=== PATIENT | female | born 1940 | race Caucasian/White ===

== ENCOUNTER 2025-04-16 10:15 | Inpatient (IN) | payer MEDICARE, BC ==
[2025-04-16] MEDS ORDERED: Ondansetron 4 MG/2 ML SDV IV PRN (10:58)
[2025-04-16] MEDS ORDERED: Ondansetron 4 MG Tab.DIS PO PRN (10:58)
[2025-04-16] MEDS ORDERED: Albuterol 0.083% 2.5 MG/3 ML Neb Soln NEB PRN (10:58)
[2025-04-16] MEDS ORDERED: Sodium Chloride 0.9% 10 ML Syringe FLUSH PRN ×2 (10:58)
[2025-04-17 07:39] LABS: PLATELET COUNT,PLT 422 10^3/uL (150-400); RED BLOOD CELL COUNT 3.84 x10^6/uL (4.00-5.50)
[2025-04-17 07:41] LABS: WHITE BLOOD CELL COUNT,WBC 23.6 10^3/uL (4.0-11.0)
[2025-04-17] MEDS: Lactobacillus Rhamnosus GG (Probiotic) Cap PO SCH (07:46)
[2025-04-17 07:58] LABS: ALANINE AMINOTRANSFERASE,ALT 222.0 U/L (12-78); ASPARTATE AMNIOTRANSFERASE,AST 56.0 U/L (15-37); BILIRUBIN TOTAL 0.4 mg/dL (0.0-1.0); BLOOD UREA NITROGEN,BUN 12.0 mg/dL (7-18); CARBON DIOXIDE,CO2 31.0 mmol/L (21-32); CHLORIDE,CL 96.0 mEq/L (98-106); CREATININE 0.7 mg/dL (0.6-1.0); EST CRCL DRUG DOSING (CG) 45.63 mL/min; GLUCOSE RANDOM 86.0 mg/dL (75-99); POTASSIUM,K 3.2 mEq/L (3.5-5.0); PROTEIN TOTAL,TP 6.5 g/dL (6.4-8.2); SODIUM,NA 134.0 mEq/L (136-145)
[2025-04-17 07:59] LABS: ESTIMATED GFR 84.0 mL/min (>=60)
[2025-04-17 08:06] LABS: EOSINOPHILS ABSOLUTE MAN 0.24 10^3/uL (0.00-0.45); EOSINOPHILS PERCENT MAN 1 % (0-5); LYMPHOCYTES ABSOLUTE MAN 6.84 10^3/uL (1.00-4.80); LYMPHOCYTES PERCENT MAN 29 % (21-55); MONOCYTES ABSOLUTE MAN 2.60 10^3/uL (0.00-0.80); MONOCYTES PERCENT MAN 11 % (2-12); NEUTROPHILS ABSOLUTE MAN 13.92 10^3/uL (1.80-7.00); SEG NEUTROPHILS PERCENT MAN 59 % (35-85)
[2025-04-17] MEDS: Potassium Chloride 20 MEQ Tab.ER PO ONE (08:40)
[2025-04-18 07:34] LABS: PLATELET COUNT,PLT 421 10^3/uL (150-400); RED BLOOD CELL COUNT 3.74 x10^6/uL (4.00-5.50)
[2025-04-18 07:50] LABS: WHITE BLOOD CELL COUNT,WBC 30.0 10^3/uL (4.0-11.0)
[2025-04-18 08:03] LABS: ALANINE AMINOTRANSFERASE,ALT 131.0 U/L (12-78); ASPARTATE AMNIOTRANSFERASE,AST 31.0 U/L (15-37); BILIRUBIN TOTAL 0.5 mg/dL (0.0-1.0); BLOOD UREA NITROGEN,BUN 13.0 mg/dL (7-18); CARBON DIOXIDE,CO2 29.0 mmol/L (21-32); CREATININE 0.7 mg/dL (0.6-1.0); EST CRCL DRUG DOSING (CG) 45.63 mL/min; GLUCOSE RANDOM 90.0 mg/dL (75-99); POTASSIUM,K 3.6 mEq/L (3.5-5.0); PROTEIN TOTAL,TP 6.1 g/dL (6.4-8.2)
[2025-04-18 08:20] LABS: CHLORIDE,CL 93.0 mEq/L (98-106); ESTIMATED GFR 84.0 mL/min (>=60); SODIUM,NA 130.0 mEq/L (136-145)
[2025-04-18 08:25] LABS: LYMPHOCYTES ABSOLUTE MAN 3.00 10^3/uL (1.00-4.80); LYMPHOCYTES PERCENT MAN 10 % (21-55); MONOCYTES ABSOLUTE MAN 1.20 10^3/uL (0.00-0.80); MONOCYTES PERCENT MAN 4 % (2-12); MYELOCYTE PERCENT MAN 21 %; NEUTROPHILS ABSOLUTE MAN 19.50 10^3/uL (1.80-7.00); SEG NEUTROPHILS PERCENT MAN 65 % (35-85)
[2025-04-19 07:26] LABS: ALANINE AMINOTRANSFERASE,ALT 88.0 U/L (12-78); ASPARTATE AMNIOTRANSFERASE,AST 18.0 U/L (15-37); BILIRUBIN TOTAL 0.4 mg/dL (0.0-1.0); BLOOD UREA NITROGEN,BUN 17.0 mg/dL (7-18); CARBON DIOXIDE,CO2 29.0 mmol/L (21-32); CHLORIDE,CL 96.0 mEq/L (98-106); CREATININE 0.8 mg/dL (0.6-1.0); EST CRCL DRUG DOSING (CG) 39.92 mL/min; GLUCOSE RANDOM 96.0 mg/dL (75-99); POTASSIUM,K 4.5 mEq/L (3.5-5.0); PROTEIN TOTAL,TP 6.1 g/dL (6.4-8.2); SODIUM,NA 132.0 mEq/L (136-145)
[2025-04-19 07:33] LABS: ESTIMATED GFR 72.0 mL/min (>=60)
[2025-04-19 07:48] LABS: BASOPHILS ABSOLUTE AUTO 0.01 10^3/uL (0.00-0.50); BASOPHILS PERCENT AUTO 0.0 % (0-1); EOSINOPHILS ABSOLUTE AUTO 0.32 10^3/uL (0.00-1.50); EOSINOPHILS PERCENT AUTO 1.1 % (0-6); IMMATURE GRAN ABSOLUTE AUTO 4.56 10^3/uL (0.00-0.49); IMMATURE GRAN PERCENT AUTO 16.4 % (0.0-4.9); LYMPHOCYTES ABSOLUTE AUTO 3.36 10^3/uL (0.60-5.00); LYMPHOCYTES PERCENT AUTO 12.1 % (24-44); MONOCYTES ABSOLUTE AUTO 1.53 10^3/uL (0.00-1.50); MONOCYTES PERCENT AUTO 5.5 % (0-10); NEUTROPHILS ABSOLUTE AUTO 18.05 x10^3/uL (1.80-8.00); NEUTROPHILS PERCENT AUTO 64.9 % (41-71); PLATELET COUNT,PLT 420 10^3/uL (150-400); RED BLOOD CELL COUNT 3.65 x10^6/uL (4.00-5.50)
[2025-04-19 07:50] LABS: WHITE BLOOD CELL COUNT,WBC 27.8 10^3/uL (4.0-11.0)
[2025-04-20 07:27] LABS: PLATELET COUNT,PLT 432 10^3/uL (150-400); RED BLOOD CELL COUNT 3.75 x10^6/uL (4.00-5.50)
[2025-04-20 07:44] LABS: ALANINE AMINOTRANSFERASE,ALT 76.0 U/L (12-78); ASPARTATE AMNIOTRANSFERASE,AST 25.0 U/L (15-37); BILIRUBIN TOTAL 0.4 mg/dL (0.0-1.0); BLOOD UREA NITROGEN,BUN 15.0 mg/dL (7-18); CARBON DIOXIDE,CO2 27.0 mmol/L (21-32); CHLORIDE,CL 95.0 mEq/L (98-106); CREATININE 0.7 mg/dL (0.6-1.0); EST CRCL DRUG DOSING (CG) 45.63 mL/min; GLUCOSE RANDOM 99.0 mg/dL (75-99); POTASSIUM,K 3.9 mEq/L (3.5-5.0); PROTEIN TOTAL,TP 6.4 g/dL (6.4-8.2); SODIUM,NA 130.0 mEq/L (136-145)
[2025-04-20 07:45] LABS: ESTIMATED GFR 84.0 mL/min (>=60)
[2025-04-20 07:46] LABS: WHITE BLOOD CELL COUNT,WBC 22.2 10^3/uL (4.0-11.0)
[2025-04-20 08:06] LABS: BAND PERCENT MAN 3 % (0-5); EOSINOPHILS ABSOLUTE MAN 0.67 10^3/uL (0.00-0.45); EOSINOPHILS PERCENT MAN 3 % (0-5); LYMPHOCYTES ABSOLUTE MAN 3.33 10^3/uL (1.00-4.80); LYMPHOCYTES PERCENT MAN 15 % (21-55); MONOCYTES ABSOLUTE MAN 0.44 10^3/uL (0.00-0.80); MONOCYTES PERCENT MAN 2 % (2-12); MYELOCYTE PERCENT MAN 3 %; NEUTROPHILS ABSOLUTE MAN 17.09 10^3/uL (1.80-7.00); SEG NEUTROPHILS PERCENT MAN 74 % (35-85)
== END 2025-04-20 13:10 | disposition home or self-care (01) | DRG 947 ==
LOC: CC.MS 10:15 → UNDOADMIN 10:56 → CC.MS 10:56 → UNDOADMIN 10:58
PROVIDERS: ADMIT Nurse Practitioner Family; ATTEND Nurse Practitioner Family
DX: R53.81 Other malaise (principal); J18.9 Pneumonia, unspecified organism; K72.00 Acute and subacute hepatic failure without coma; E87.1 Hypo-osmolality and hyponatremia; E87.20 Acidosis, unspecified; D72.829 Elevated white blood cell count, unspecified
CPT/HCPCS: 36415; 80053; 85025; 86140; 87070; 87205; 94640; 97530-GP; 99307; 99316; A9270-GY; J0696; J1650